=== PATIENT | female | born 1955 | race African-American/Black ===

== ENCOUNTER 2021-02-03 11:04 | Inpatient (IN) | payer OTHER ==
[~2021-02-03] VITALS: Ht 167.6 cm; Wt 120.2 kg
[2021-02-03 11:22] VITALS: BP 104/45
[2021-02-03 12:00] LABS: ABSOLUTE NEUTROPHILS 4.5 thou/uL (1.4-8.2); BASOPHILS 0.5 % (0.0-2.0); HEMATOCRIT 42.3 % (37.0-47.0); HEMOGLOBIN 13.6 gm/dL (12.0-15.0); LYMPHOCYTES 22.5 % (24.0-44.0); MCH 28.3 pg (26.0-34.0); MCHC 32.1 g/dL (28.0-37.0); MCV 88.2 fL (80.0-100.0); MONOCYTES 9.6 % (1.0-8.0); PLATELET COUNT 116 thou/uL (150-400); POLYS 67.4 % (36.0-66.0); RBC 4.79 mil/uL (4.20-5.00); RDW 15.5 % (10.5-14.5); WBC 6.7 thou/uL (4.0-11.0)
[2021-02-03 12:07] LABS: ANION GAP 13 mmol/L (7-16); BUN 25 mg/dL (7-18); CALCIUM 8.7 mg/dL (8.5-10.1); CHLORIDE 100 mmol/L (98-107); CO2 23 mmol/L (21-32); CREATININE 1.7 mg/dL (0.6-1.0); GLUCOSE 157 mg/dL (74-106); POTASSIUM 4.2 mmol/L (3.5-5.1); SODIUM 136 mmol/L (136-145)
[2021-02-03 12:18] LABS: ALBUMIN 3.3 g/dL (3.4-5.0); DIRECT BILIRUBIN 0.7 mg/dL (<0.1-0.2); LIPASE 116 U/L (73-393); SGOT 65 U/L (15-37); SGPT 47 U/L (30-65); TOTAL BILIRUBIN 1.2 mg/dL (0.2-1.0); TOTAL PROTEIN 7.9 g/dL (6.4-8.2); TROPONIN-I <0.06 ng/mL (<0.06)
[2021-02-03] MEDS ORDERED: METFORMIN HCL500 M3 PO (12:28)
[2021-02-03] MEDS ORDERED: [UNRECOGNIZED DRUG - OTHER] PO (12:29)
[2021-02-03] MEDS ORDERED: LIPITOR10 MG PO (12:29)
[2021-02-03] MEDS ORDERED: SPIRIVA18 MCG INH (12:29)
[2021-02-03] MEDS ORDERED: VENTOLIN HFA 1818 GM INH (12:30)
[2021-02-03] MEDS ORDERED: ASA81BEC PO (12:31)
[2021-02-03] MEDS ORDERED: BACLOFEN20 MG PO (12:31)
[2021-02-03] MEDS ORDERED: BENADRYL25 MG PO (12:31)
[2021-02-03 13:48] VITALS: BP 112/64
--- NOTE | 2021-02-03 15:26 | EKG ---
[facility] [place] [place] [address] ELECTROCARDIOGRAM REPORT Name: WILLIAMS BEARDEN Room #: 349-I ADM IN M.R.#: [id number] Admission: 02/03/21 Attend Phys: Domi Roldan Discharge: Date of : 57 Report #: [id number] [facility] ED Test Date: 2021-02-03 Test Time: 11:18:09 Pat Name: WILLIAMS BEARDEN Department: Room: [facility] Gender: F Head Pumper: : 1955 Requested By: David Esteves Order Number: [id number] MD: Schuyler Cooney Measurements Intervals Eldena Rate: 90 P: 71 GA: 141 QRS: -36 QRSD: 92 T: 30 QT: 354 QTc: 433 Interpretive Statements Sinus rhythm Ventricular trigeminy Right atrial enlargement Left axis deviation Abnormal R-wave progression, late transition No previous ECG available for comparison Electronically Signed On 02-03-2021 15:26:00 CDT by Schuyler Cooney [email or web address] <ELECTRONICALLY SIGNED> By: Schuyler Cooney MD, [facility] 02/03/21 1526 1118 [id number] Schuyler Cooney MD, FACC /EPI
[2021-02-03 15:35] VITALS: BP 98/63
--- NOTE | 2021-02-03 16:37 | NUR ---
assuned care of pt at 0700. pt alert and oriented, feeling better after fluids in ER. up to bathroom with sba and walker. room air. ivf infusing per order. calls out appropriately. sinus on telemetry. ID consulted. lori.
[2021-02-03 20:15] VITALS: BP 94/63
[2021-02-04 04:33] VITALS: BP 101/71
--- NOTE | 2021-02-04 05:01 | NUR ---
Patient making slow progress towards outcome goals. Vital signs and rhythm stable. Oxygenation optimal on room air. Coughing spells, coughing up clear secretions. Guiafenesin given prn. Up ad pavan to bathroom with walker witout difficulty, gait steady. COVID positive, remains on enhanced isolation.
[2021-02-04 05:21] LABS: HEMATOCRIT 42.5 % (37.0-47.0); HEMOGLOBIN 13.6 gm/dL (12.0-15.0); MCH 28.2 pg (26.0-34.0); MCV 88.4 fL (80.0-100.0); RBC 4.81 mil/uL (4.20-5.00); RDW 15.1 % (10.5-14.5); WBC 8.1 thou/uL (4.0-11.0)
[2021-02-04 06:21] LABS: ALBUMIN 3.1 g/dL (3.4-5.0); ANION GAP 14 mmol/L (7-16); BUN 30 mg/dL (7-18); CALCIUM 8.7 mg/dL (8.5-10.1); CHLORIDE 102 mmol/L (98-107); CO2 22 mmol/L (21-32); CREATININE 1.6 mg/dL (0.6-1.0); GLUCOSE 191 mg/dL (74-106); PHOSPHORUS 3.3 mg/dL (2.5-4.9); POTASSIUM 4.5 mmol/L (3.5-5.1); SODIUM 138 mmol/L (136-145); TROPONIN-I <0.06 ng/mL (<0.06)
[2021-02-04 07:21] VITALS: BP 88/45
--- NOTE | 2021-02-04 08:21 | HC ---
[facility] [place] [address] CONSULTATION Name: WILLIAMS BEARDEN Room #: 349-I ADM IN M.R.#: [id number] Admission: 02/03/21 Attend Phys: Domi Roldan Discharge: Date of : 57 Report #: [id number] THIS REPORT FOR: cc: FAM - Family physician unknown FAM - Family physician unknown Roland Lancaster MD ~ DOC #: [id number] Roland Lancaster MD DATE OF SERVICE: 02/03/2021 INFECTIOUS DISEASE CONSULTATION ATTENDING PHYSICIAN: Dr. Roldan REASON FOR EVALUATION: COVID-19 infection, complicated by respiratory tract infection. HISTORY OF PRESENT ILLNESS: Chart reviewed and the patient was examined. This is a 65-year-old with known diabetes mellitus type 2, also asthma, who apparently has been ill for roughly 6 days. She noted onset of cough. Subsequently developed some low-grade temperature elevations. Denies chills. She has had some degree of dyspnea as well. Additionally was experiencing nausea, emesis, and lightheadedness. It is notable she did not receive the coronavirus vaccine. Initial evaluation showed thrombocytopenia. Chest x-ray showed some bilateral infiltrates. CT confirmed interstitial aspect and positive coronavirus test. Also noted to have elevated creatinine of 1.7 with an estimated GFR of 30. Mildly elevated AST of 65. Procalcitonin 0.22. Influenza antigen was negative. ALLERGIES: PENICILLIN, BACTRIM, FLAGYL, CONTRAST DYE. MEDICATIONS: Current medicines include dexamethasone, insulin lispro, enoxaparin, p.r.n. analgesics, antiemetics, zolpidem, azithromycin, ceftriaxone. PAST MEDICAL HISTORY: As described above, diabetes mellitus type 2, asthma. SOCIAL HISTORY: Former smoker, no ethanol or illicit drug use. FAMILY HISTORY: Noncontributory. REVIEW OF SYSTEMS: Otherwise, unremarkable. PHYSICIAN EXAMINATION: GENERAL: She is in moderate distress. She has frequent cough, is nonproductive during the visit. She is generally lucid. VITAL SIGNS: Temperature 98.8, T-max 100.3, pulse 73, respirations 16, blood [address] [address] CONSULTATION Name: WILLIAMS BEARDEN Room #: 349-I [facility] IN M.R.#: [id number] Admission: 02/03/21 Attend Phys: Domi Roldan Discharge: Date of : 57 Report #: [id number] pressure 98/63. SKIN: Warm, dry. HEENT: Normocephalic. Extraocular muscles intact. NECK: Supple. She is maintained on room air. LUNGS: Some wheezes. Scattered crackles at the bases. HEART: Regular. I do not appreciate a murmur. ABDOMEN: Obese, somewhat firm, nontender. EXTREMITIES: No cyanosis. GENITOURINARY AND RECTAL: Deferred. LABORATORY DATA: As described above. ProBNP of 300. Lactic acid 1.4. Electrolytes: Sodium 136, potassium 4.2, chloride 100, bicarbonate is 23, anion gap of 13, BUN and creatinine 25 and 1.7, AST of 65, ALT of 47. Albumin of 33, total protein 7.9. Estimated GFR of 30. CT of the abdomen and pelvis, patchy nodular bibasilar infiltrates. ASSESSMENT AND PLAN: COVID-19 infection, complicated by pneumonitis. She remains somewhat tenuous although at this point, although has radiographic changes and has not required supplemental oxygen. We will dose with ivermectin. Continue corticosteroids, add vitamins. We would hold on remdesivir. I will see how her creatinine does, presumably will improve and also IL-6 monoclonal antibody. Continue to monitor expectantly. Certainly at risk given her underlying issues with obesity, diabetes mellitus, and asthma. We will follow. MD MARIANNA Vigil/CASTILLO <ELECTRONICALLY SIGNED> By: Roland Lancaster MD 02/04/21 0821 [id number] Roland Lancaster MD /nt
[2021-02-04 11:30] VITALS: BP 91/54
--- NOTE | 2021-02-04 14:53 | NUR ---
INITIAL ASSESSMENT: CECI reviewed chart and spoke with nursing and attending physician. Pt was admitted from home due to COVID. Pt is afebrile and not requiring O2. Pt has started course of Ivermectin. Pt is unable to start Remdesivir due to kidney function. CECI has placed several calls to pt's room. No answer. Per chart, pt is alert/orientated x 4. Pt lives at home. Pt uses a walker at home. Pt has been up ad pavan in her room. Anticipate pt will be able to discharge home when medically stable. CECI is following to assist as needed with discharge planning.
[2021-02-04 16:35] VITALS: BP 124/88
[2021-02-04 19:50] VITALS: BP 101/56
[2021-02-05 04:41] VITALS: BP 127/79
[2021-02-05 04:55] LABS: ALBUMIN 3.2 g/dL (3.4-5.0); CREATININE 1.3 mg/dL (0.6-1.0); PHOSPHORUS 2.6 mg/dL (2.5-4.9); POTASSIUM 4.6 mmol/L (3.5-5.1)
--- NOTE | 2021-02-05 05:59 | NUR ---
PT MAKING SLOW PROGRESS TOWARDS GOALS. PT ON ROOM AIR OVERIGHT. NOTED FAINT WHEEZING THROUGHOUT ALL LUNG JIMENEZ. NOTED O2 SAT 87% AFTER COUGHING AND RETURNING TO BED FROM THE BATHROOM. WITHIN FEW MOMENTS O2 SAT CLIMBED TO 92% W/O ANY INTERVENTION. ENCOURAGED TO PACE HER ACTIVITES AND CALL FOR ANY SOA.
[2021-02-05 07:38] VITALS: BP 105/43
[2021-02-05 11:41] VITALS: BP 102/58
[2021-02-05 20:40] VITALS: BP 107/65; BP 107/695
[2021-02-06 04:00] VITALS: BP 127/78
[2021-02-06 04:23] LABS: ALBUMIN 3.1 g/dL (3.4-5.0); CALCIUM 9.2 mg/dL (8.5-10.1); CREATININE 1.1 mg/dL (0.6-1.0); DIRECT BILIRUBIN 0.2 mg/dL (<0.1-0.2); PHOSPHORUS 3.8 mg/dL (2.5-4.9); POTASSIUM 4.6 mmol/L (3.5-5.1); TOTAL BILIRUBIN 0.4 mg/dL (0.2-1.0); TOTAL PROTEIN 7.6 g/dL (6.4-8.2)
--- NOTE | 2021-02-06 06:23 | NUR ---
Pt. slept some. Requested cough med and med to help with her wheezing. Guiafenessin given with some relief. NEWS INTERN notified and inhaler ordered for pt. RT notified and gave to pt. Maintaining O2 sat in the upper 90's on 2L/NC. She gets short of breath with exertion. Cont. on enhanced precaution , afebrile. Making some progress towards care plan goals.
[2021-02-06 07:35] VITALS: BP 117/67
[2021-02-06 11:18] VITALS: BP 110/73
[2021-02-06 15:25] VITALS: BP 119/76
[2021-02-06 19:20] VITALS: BP 116/64
[2021-02-07 04:15] VITALS: BP 111/74
--- NOTE | 2021-02-07 05:00 | NUR ---
Slept fair during the night. She stated she's feeling much better. No respiratory distress on 2L/NC though she verbalized being short of breath with exertion.Cont. on enhanced precaution , afebrile.
[2021-02-07 06:19] LABS: ALBUMIN 3.2 g/dL (3.4-5.0); CALCIUM 9.2 mg/dL (8.5-10.1); CREATININE 1.2 mg/dL (0.6-1.0); DIRECT BILIRUBIN 0.2 mg/dL (<0.1-0.2); PHOSPHORUS 3.5 mg/dL (2.6-4.7); POTASSIUM 4.4 mmol/L (3.5-5.1); TOTAL BILIRUBIN 0.4 mg/dL (0.2-1.0); TOTAL PROTEIN 7.7 g/dL (6.4-8.2)
[2021-02-07 08:00] VITALS: BP 105/65
[2021-02-07] MEDS ORDERED: CEFUROXIME500 MG PO (08:31)
[2021-02-07] MEDS ORDERED: ELIQUIS5 MG PO (08:34)
[2021-02-07] MEDS ORDERED: PREDNISONE 20 M20 MG PO (08:34)
[2021-02-07 11:51] VITALS: BP 105/65
--- NOTE | 2021-02-07 11:52 | NUR ---
DISCHARGE NOTE: CECI reviewed chart and spoke with nursing and attending physician. Pt remains in Enhanced Isolation due to COVID. Pt is medically stable for discharge home today. Rest/exercise oximetry completed. Pt needs 2L of O2 with activity. CECI spoke with pt via phone to discuss discharge plan. SW explained need for home O2. Pt verbalized understanding. DME options provided. No preference voiced. Pt states she might be staying with her dtr: [address] [place] [address]. CECI confirmed pt's home address. CECI informed pt that a portable tank will be delivered and she will need to call the DME company when discharged to arrange the delivery of additional home O2 equipment. Pt verbalized understanding. CECI faxed home O2 referral and script to [facility] for review. Confirmed info was received. Notified [facility] liaison. Portable tank to be delivered to pt's room in about an hour. Contact info for [facility] placed in pt's discharge summary. Pt's family to provide transportation home. CECI updated pt's nurse. No additional SW needs identified at this time. CECI is available to assist should needs arise.
[2021-02-07 11:55] VITALS: BP 111/76
[2021-02-07 14:35] VITALS: BP 105/65
[2021-02-07 15:24] VITALS: BP 105/65
--- NOTE | 2021-02-07 17:24 | NUR ---
PT DISCHARGED TO HOME...DAUGHTER TO [employer] HER RXS AND [employer] WAS TRANSPORTING PATIENT HOME...[facility] PROVIDED TRANSPORT O2 TANK AND SHE IS TO CALL THEM WHEN HOME TO DELIVER O2.
== END 2021-02-07 17:23 | disposition home or self-care (01) | DRG 177 ==
LOC: ER 11:04 → 3W 13:49 → EROBS 13:49 → 3W 14:09
PROVIDERS: Nurse Practitioner; Specialist; ADMIT Hospitalist; ATTEND Hospitalist
PROC: XW033E5 Introduction of Remdesivir Anti-infective into Peripheral Vein, Percutaneous Approach, New Technology Group 5 (ICD-10-PCS; principal; 2021-02-05)
DX: U07.1 COVID-19 (principal); J12.82 Pneumonia due to coronavirus disease 2019; J96.00 Acute respiratory failure, unspecified whether with hypoxia or hypercapnia; Z68.41 Body mass index [BMI] 40.0-44.9, adult; I95.9 Hypotension, unspecified; E11.9 Type 2 diabetes mellitus without complications; E66.9 Obesity, unspecified; Z79.82 Long term (current) use of aspirin; Z79.84 Long term (current) use of oral hypoglycemic drugs; Z79.899 Other long term (current) drug therapy; Z88.0 Allergy status to penicillin; Z88.2 Allergy status to sulfonamides; Z88.8 Allergy status to other drugs, medicaments and biological substances; Z88.1 Allergy status to other antibiotic agents; Z91.041 Radiographic dye allergy status; Z87.891 Personal history of nicotine dependence
CPT/HCPCS: 10879